=== PATIENT | female | born 1955 | race Caucasian/White ===

== ENCOUNTER 2016-11-12 16:40 | Emergency (ER) | payer BC ==
[2016-11-12 16:58] VITALS: BP 140/70
[2016-11-12] MEDS ORDERED: Diphtheria,Pertussis(Acell),Tetanus Vaccine 0.5 ML SDV inactive IM ONE (17:14)
--- NOTE | 2016-11-12 17:27 | EDM.PDOC ---
ED HPI Skin/Rash - General Chief Complaint: Laceration Stated Complaint: INDEX FINGER LAC Time Seen by Provider: 11/12/16 17:27 Source: Reports: Patient History Limitations: Reports: No limitations - History of Present Illness INITIAL COMMENTS - FREE TEXT/NARRATIVE: 60-year-old female presents for evaluation and treatment of a laceration to the left pointer finger. Injury occurred prior to arrival in the ER. Patient reports that she was cutting some steak with a new knife when the knife accidentally slipped cutting her left hand second finger. She states that she had a significant amount of bleeding. She denies any numbness, tingling or decreased range of motion. She did attempt to clean and dress the wound prior to arrival. Patient is unsure of her last tetanus. Patient is right-handed. 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(s) - Related Data Allergies Allergy/AdvReac Type Severity Reaction Status Date / Time anesthesia Allergy Nausea Uncoded 11/12/16 16:56 Home Meds: Ambulatory Orders Medication Instructions Recorded Confirmed Calcium Carbonate [Calcium] 500 mg PO BID 04/04/14 11/12/16 Cholecalciferol (Vitamin D3) 1,000 unit PO DAILY 04/04/14 11/12/16 [Vitamin D] Cholestyramine (With Sugar) 1 scoop PO BID 04/04/14 11/12/16 [Cholestyramine Powder] Fexofenadine [Leigh Ann] 180 mg PO DAILY 04/04/14 11/12/16 Fish Oil/[place]-3 Fatty Acids [Fish 2 each PO BID 04/04/14 11/12/16 Oil] Niacin [Slo-Niacin] 2,000 mg PO DAILY 04/04/14 11/12/16 Olopatadine HCl [Pataday] 2.5 ml EYEBOTH ASDIRECTED PRN 04/04/14 11/12/16 Venlafaxine [Effexor XR] 225 mg PO DAILY 04/04/14 11/12/16 LORazepam [Ativan] 0.25 mg PO DAILY 01/16/16 11/12/16 Naproxen 500 mg PO BID #30 tablet 01/16/16 11/12/16 traMADol [Ultram] 50 mg PO Q6H PRN #20 tablet 01/16/16 11/12/16 Oxybutynin Chloride [Ditropan Xl] 10 mg PO BEDTIME 11/12/16 11/12/16 Past Medical History HEENT History: Reports: Allergic rhinitis Cardiovascular History: Reports: High cholesterol Musculoskeletal History: Reports: Osteoarthritis Psychiatric History: Reports: Anxiety Oncologic (Cancer) History: Reports: Lymphoma - Past Surgical History HEENT Surgical History: Reports: Tonsillectomy GI Surgical History: Reports: Appendectomy, Colonoscopy Female Surgical History: Reports: Hysterectomy Musculoskeletal Surgical History: Reports: Other (see below) Other Musculoskeletal Surgeries/Procedures:: Bunion Social & Family History - Family History Family Medical History: Noncontributory - Tobacco Use Smoking Status *Q: Never Smoker Years of Tobacco use: 15 Month Tobacco Last Used: 22 years ago Second Hand Smoke Exposure: No - Caffeine Use Caffeine Use: Reports: None - Alcohol Use Days Per Week of Alcohol Use: 0 - Recreational Drug Use Recreational Drug Use: No ED ROS GENERAL - Review of Systems Review Of Systems: See Below Musculoskeletal: Reports: hand pain (left hand second finger) Skin: Reports: wound (left lateral 2nd finger 1.2 cm superficial skin avulsion) Neurological: Denies: Numbness, Tingling ED EXAM, SKIN/RASH Exam: See Below Exam Limited By: No limitations General Appearance: alert, WD/WN, no apparent distress Respiratory/Chest: no respiratory distress Cardiovascular: normal peripheral pulses (2+ radial pulses bilaterally), regular rate, rhythm Peripheral Pulses: 2+: radial (L), radial (R) Extremities: normal range of motion, normal capillary refill Neurological: alert, oriented, normal cognition Psychiatric: normal affect, normal mood Skin: Warm, Dry, Normal color Location, Skin: upper extremity, left (1.2 cm superficial skin avulsion to the left hand distal lateral second finger) Course - Vital Signs Last Recorded V/S: Last Vital Signs Temp 36.5 C 11/12/16 16:51 Pulse 101 H 11/12/16 16:51 Resp 18 11/12/16 16:51 BP 140/70 11/12/16 16:51 Pulse Ox 100 11/12/16 16:51 - Orders/Labs/Meds Meds: Medications Discontinued Medications Generic Name Dose Route Start Last Admin Trade Name Freq PRN Reason Stop Dose Admin Diphtheria/Tetanus/Acell Pertussis 0.5 ml 11/12/16 17:14 11/12/16 17:24 Boostrix IM 11/12/16 17:15 0.5 ml .ONCE ONE Administration - Re-Assessments/Exams Free Text/Narrative Re-Assessment/Exam: 11/12/16 17:39 Due to the skin avulsion there is nothing to be sutured. Bleeding was mostly controlled with pressure. The patient soaked the finger. One small area of continued bleeding I cauterized with one silver nitrate stick. Only one application necessary. I did not block the finger as the area was very small and the patient agreed to this without local. The patient tolerated this very well. Tetanus is updated. Will discharge home at this time. Discharge instructions as documented. Departure - Departure Time of Disposition: 17:41 Disposition: Home, Self-Care 01 Condition: good Clinical Impression: Laceration Instructions: Laceration Care, Adult, [id number] Referrals: Adelita Lowe MD [Primary Care Provider] - Forms: ED Department Discharge Additional Instructions: Keep dressing on the wound tonight. OTC tylenol or motrin as needed for pain relief. Wash the wound with gentle soap and water twice a day. Antibacterial ointment to the wound twice a day x 3 days. Monitor for signs of infection such as increased erythema, swelling or pus. Present to the clinic or the ER should these develop. Follow-up with PCP as needed. Please return to the ER for any problems, questions or concerns.
== END 2016-11-12 17:50 | disposition home or self-care (01) ==
LOC: JD.ED 16:40
DX: S61.211A Laceration without foreign body of left index finger without damage to nail, initial encounter (principal); E78.00 Pure hypercholesterolemia, unspecified; M19.90 Unspecified osteoarthritis, unspecified site; F41.9 Anxiety disorder, unspecified; Z98.890 Other specified postprocedural states; Z79.899 Other long term (current) drug therapy; Z90.49 Acquired absence of other specified parts of digestive tract; Z88.4 Allergy status to anesthetic agent; W26.0XXA Contact with knife, initial encounter; Y92.009 Unspecified place in unspecified non-institutional (private) residence as the place of occurrence of the external cause
CPT/HCPCS: 90471; 90715; 99282; 99283-25

== ENCOUNTER 2020-05-03 14:10 | Emergency (ER) | payer MEDICARE, OTHER ==
[2020-05-03 14:17] VITALS: BP 157/71; PULSE 103
[2020-05-03] MEDS ORDERED: HYDROmorphone 1 MG/ML Syringe IM ONE (14:48)
[2020-05-03] MEDS ORDERED: Ondansetron 4 MG Tab.DIS PO ONE (14:49)
[2020-05-03] MEDS ORDERED: Magnesium Citrate Solution 296 ML Bottle PO ONE (16:26)
--- NOTE | 2020-05-03 16:26 | EDM.PDOC ---
ED HPI GENERAL MEDICAL PROBLEM - General Chief Complaint: Back Pain or Injury Stated Complaint: [facility] Time Seen by Provider: 05/03/20 14:20 Source of Information: Reports: Patient, RN Notes Reviewed History Limitations: Reports: No Limitations - History of Present Illness INITIAL COMMENTS - FREE TEXT/NARRATIVE: Patient is a 64-year-old female presenting to the emergency department with complaints of severe low back pain with radiation down her bilateral legs. She had surgery on her lower back with Dr. Tam approximately 3 days ago. She has been taking Blythe for pain. Her last dose of 2 tablets was about 2 hours prior to coming to ER. She states that she could barely get out of bed. When she did stand up she experienced severe pain down her legs with cramping. She had her called the ambulance. She also complains of being constipated. She has not had a bowel movement since Monday. States she has been taking Colace daily and took MiraLAX earlier today but has had no results. Denies any fever or chills. Lower Back Pain Score (Numeric/FACES): 10 - Related Data Allergies Allergy/AdvReac Type Severity Reaction Status Date / Time No Known Allergies Allergy Verified 05/03/20 14:17 Home Meds: Home Meds Calcium Carbonate [Calcium] 500 mg PO BID 04/04/14 [History] Cholecalciferol (Vitamin D3) [Vitamin D] 1,000 unit PO DAILY 04/04/14 [History] Cholestyramine (With Sugar) [Cholestyramine Powder] 1 scoop PO BID 04/04/14 [His tory] Fexofenadine [Leigh Ann] 180 mg PO DAILY 04/04/14 [History] Olopatadine HCl [Pataday] 2.5 ml EYEBOTH ASDIRECTED PRN 04/04/14 [History] Venlafaxine [Effexor XR] 225 mg PO DAILY 04/04/14 [History] Oxybutynin Chloride [Ditropan Xl] 10 mg PO BEDTIME 11/12/16 [History] Fluticasone Propionate [Flonase] 1 inh NS DAILY 05/03/20 [History] Naproxen 500 mg PO BID PRN 05/03/20 [History] Rosuvastatin [Crestor] 20 mg PO BEDTIME 05/03/20 [History] Past Medical History HEENT History: Reports: Allergic Rhinitis Cardiovascular History: Reports: High Cholesterol, Hypertension Musculoskeletal History: Reports: Back Pain, Chronic Psychiatric History: Reports: Anxiety Oncologic (Cancer) History: Reports: Lymphoma - Past Surgical History HEENT Surgical History: Reports: Oral Surgery, Other (See Below) Other HEENT Surgeries/Procedures: TMJ Surgery GI Surgical History: Reports: Appendectomy, Colonoscopy Female Surgical History: Reports: Hysterectomy Neurological Surgical History: Reports: Lumbar Spine Musculoskeletal Surgical History: Reports: Other (See Below) Other Musculoskeletal Surgeries/Procedures:: Bunion surgery on right foot Social & Family History - Family History Family Medical History: Noncontributory - Tobacco Use Tobacco Use Status *Q: Never Tobacco User - Caffeine Use Caffeine Use: Reports: None - Recreational Drug Use Recreational Drug Use: No ED ROS GENERAL - Review of Systems Review Of Systems: See Below Constitutional: Reports: No Symptoms. Denies: Fever, Chills HEENT: Reports: No Symptoms Respiratory: Reports: No Symptoms Cardiovascular: Reports: No Symptoms Endocrine: Reports: No Symptoms GI/Abdominal: Reports: Constipation. Denies: Abdominal Pain, Diarrhea, Nausea, Vomiting : Reports: No Symptoms Musculoskeletal: Reports: Back Pain (Lumbar radiating down bilateral legs) Skin: Reports: No Symptoms Neurological: Reports: No Symptoms Psychiatric: Reports: No Symptoms Hematologic/Lymphatic: Reports: No Symptoms Immunologic: Reports: No Symptoms ED EXAM,LOWER BACK PAIN/INJURY - Physical Exam Exam: See Below General Appearance: Alert, WD/WN, No Apparent Distress Respiratory/Chest: No Respiratory Distress, Lungs Clear, Normal Breath Sounds, No Accessory Muscle Use, Chest Non-Tender Cardiovascular: Normal Peripheral Pulses, Regular Rate, Rhythm, No Edema, No Gallop, No JVD, No Murmur, No Rub GI/Abdominal: Normal Bowel Sounds, Soft, Non-Tender, No Organomegaly, No Distention, No Abnormal Bruit, No Mass Back Exam: Other (Well approximated midline lumbar incision closed with acosta., No redness, erythema, or drainage.) Neurological: Alert, Normal Mood/Affect, Normal Dorsiflexion, CN II-XII Intact, Normal Plantar Flexion, Normal Gait, Normal Reflexes, Oriented x 3 Psychiatric: Normal Affect, Normal Mood Skin Exam: Warm, Dry, Intact, Normal Color, No Rash Lymphatic: No Adenopathy Course - Vital Signs Last Recorded V/S: Last Vital Signs Temp 97.6 F 10/25/20 14:14 Pulse 103 H 05/03/20 14:14 Resp 20 05/03/20 14:14 BP 157/71 H 05/03/20 14:14 Pulse Ox 92 L 05/03/20 14:14 - Orders/Labs/Meds Orders: Active Orders 24 hr Category Date Time Status Abdomen 1V Flat [CR] Stat Exams 05/03/20 14:50 Taken Meds: Medications Discontinued Medications Generic Name Dose Route Start Last Admin Trade Name Aiden PRN Reason Stop Dose Admin Hydromorphone HCl 1 mg 05/03/20 14:48 05/03/20 15:14 Dilaudid IM 05/03/20 14:49 1 mg ONETIME ONE Administration Magnesium Citrate 296 ml 05/03/20 16:26 Citrate Of Magnesia PO 05/03/20 16:27 ONETIME ONE Ondansetron HCl 4 mg 05/03/20 14:49 05/03/20 15:14 Zofran Odt PO 05/03/20 14:50 4 mg ONETIME ONE Administration - Re-Assessments/Exams Free Text/Narrative Re-Assessment/Exam: Patient is a 64-year-old female presenting to the emergency department with acute worsening of low back pain 3 days postop from lumbar surgery with Dr. Tam. She took a dose of 2 Blythe around noon today with little relief. She also complains of not being able to have a bowel movement since Monday. She states that she has a difficult stick for IVs. I have ordered Dilaudid 1 mg IM, Zofran 4 mg ODT, and an abdomen flat x-ray. 05/03/20 16:24 Patient is feeling much better after the medications given. My plan is to prescribe her a short course of Percocet and sent her home with a bottle of magnesium citrate for constipation. Called and spoke with Dr. Green and he is in agreement with this plan. He would like her to call his office tomorrow to follow-up and ensure that she is doing well. Discussed this with patient and she is in agreement. Emphasized that she should not take the Percocet and Blythe together. Recommend that she use the Percocet for the next few days until her pain starts improving and then she may switch back to the Blythe as needed. Recommend she continue Colace and MiraLAX as needed to maintain regularity after she has a bowel movement from the mag citrate. Return to ER as needed. Departure - Departure Time of Disposition: 16:33 Disposition: Home, Self-Care 01 Condition: Good Clinical Impression: Postoperative back pain Constipation Qualifiers: Constipation type: drug induced constipation Qualified Code(s): K59.03 - Drug induced constipation - Discharge Information *PRESCRIPTION DRUG MONITORING PROGRAM REVIEWED*: Yes *COPY OF PRESCRIPTION DRUG MONITORING REPORT IN PATIENT ABDI: No Instructions: Constipation, Adult, [id number], Acute Pain, Adult Referrals: Piyush Tam MD [Ordering Only Provider] - Forms: ED Department Discharge Additional Instructions: You were seen in the emergency department today for worsening back pain after having surgery on your spine on . You are also concerned with constipation. While in the ER, you received an injection of Dilaudid and Zofran for nausea. An x-ray of your abdomen was also completed. X-ray of the abdomen does show moderate to large amount of stool throughout your colon. Your pain was much better after the medications given. You have been sent home with a bottle of magnesium citrate. Recommend that she drink this entire bottle when you get home. Over the course of a few hours, this should produce a number of bowel movements some of which may be loose. A prescription for Percocet which is oxycodone with Tylenol has been provided. Use this medication as prescribed. Do not take the hydrocodone with Tylenol at the same time you are taking this medication. As your pain begins to improve over the course of the next few days, you may transition back to the hydrocodone with Tylenol. Recommend that you call Dr. Tam's office tomorrow morning to follow-up on how you are doing. Return to ER as needed. Sepsis Event Note (ED) - Evaluation Sepsis Screening Result: No Definite Risk - Focused Exam Vital Signs: Vital Signs Temp Pulse Resp BP Pulse Ox 05/03/20 14:14 97.6 F 103 H 20 157/71 H 92 L - My Orders Last 24 Hours: My Active Orders 05/03/20 14:50 Abdomen 1V Flat [CR] Stat - Assessment/Plan Last 24 Hours: My Active Orders 05/03/20 14:50 Abdomen 1V Flat [CR] Stat
--- NOTE | 2020-05-07 13:24 | CR ---
PROCEDURE INFORMATION: Exam: XR Abdomen, 1 View Exam date and time: 05/03/2020 3:32 PM Age: 64 years old Clinical indication: Abdominal pain; Other: Luq; Prior surgery; Surgery date: 3- 7 days postoperative; Surgery type: Lumbar spinal fusion on ; Patient HX: Constipation? TECHNIQUE: Imaging protocol: XR of the abdomen. Views: Frontal supine view of the abdomen. 1 View. COMPARISON: No relevant prior studies available. FINDINGS: Gastrointestinal tract: Normal. No bowel dilation. Intraperitoneal space: Supine nature limits evaluation for free air. Bones/joints: Postsurgical changes with lumbar fusion at the L3-L5 levels. Other findings: Moderate to large amount of stool. IMPRESSION: 1. Moderate to large amount of stool throughout the colon. 2. Postsurgical changes lumbosacral spine. Thank you for allowing us to participate in the care of your patient. Dictated and Authenticated by: Yousif Leon MD 05/03/2020 5:26 PM Central Time ([place] & [place]) [place]
== END 2020-05-03 17:10 | disposition home or self-care (01) ==
LOC: JD.ED 14:10
DX: G89.18 Other acute postprocedural pain (principal); M54.5 Low back pain; K59.03 Drug induced constipation; I10 Essential (primary) hypertension; E78.00 Pure hypercholesterolemia, unspecified; F41.9 Anxiety disorder, unspecified; Z90.49 Acquired absence of other specified parts of digestive tract; Z90.710 Acquired absence of both cervix and uterus; Z79.899 Other long term (current) drug therapy
CPT/HCPCS: 74018; 96372; 99283; A9270; J1170